=== PATIENT | female | born 1990 | race Caucasian/White ===

== ENCOUNTER 2020-10-07 17:07 | Inpatient (IN) | payer OTHER, SELFPAY ==
[2020-10-07] VITALS (60 sets, daily range): BP systolic 82–152; BP diastolic 51–91; PULSE 75–160; RESP 18; TEMP 36.2–36.7; O2SAT 89–100; BMI 32.0
--- NOTE | 2020-10-07 17:07 | LDADM ---
This patient, Alicia Rivera, was admitted to Labor/Delivery/Recovery 120 on 10/07/20 at 17:07. Plans for labor, pain management and were discussed with patient. Patient/family oriented to hospital policies and general routines including ID bracelet, bed and alarms, visiting hours, pain management, procedures, bathroom and other care routines, personal items, smoking policy, room service/diet and guest tray routines, security routines, and visiting hours. Patient/Family are encouraged to report perceived risks to care and to ask questions if they do not understand what they are told or what they should do. See OBIX for further documentation.
[2020-10-07 17:38] LABS: Basophils Percent Auto 0.3 % (0.2-1.2); Eosinophils Absolute Auto 0.1 K/mm3 (0-0.3); Eosinophils Percent Auto 0.3 % (0-4.4); Hematocrit 35.7 % (37.0-47.0); Hemoglobin 11.4 g/dL (12.0-15.0); Immature Granulocyte Absolute 0.15 K/mm3 (0.00-0.031); Lymphocytes Absolute Auto 1.28 K/mm3 (0.9-3.2); Lymphocytes Percent Auto 8.5 % (18.3-44.2); Mean Corpuscular HGB Conc 31.9 g/dl (32-36); Mean Corpuscular Hemoglobin 26.5 pg (26-34); Mean Corpuscular Volume 82.8 fl (80-100); Mean Platelet Volume 9.7 fl (7.4-10.4); Monocytes Absolute Auto 0.9 K/mm3 (0.1-0.6); Monocytes Percent Auto 5.7 % (2.6-8.5); Neutrophils Absolute Auto 12.6 K/mm3 (1.3-6.7); Neutrophils Percent Auto 84.2 % (45.5-73.1); Platelet Count Result 276 k/mm3 (150-375); Red Blood Count 4.31 M/mm3 (4.2-5.4); Red Cell Distribution Width 15.5 % (11.5-14.5)
--- NOTE | 2020-10-07 18:20 | PC.NURSE ---
1707-Pt arrived on unit stating she is leaking fluid and her butt is burning . Pt is immediately taken to room 120, helped undress place gown and belly band on. Pt leaking gross amount of clear amniotic fluid, stating she feels like she needs to push. 1711-Holden RN called to inform pt came in with obvious ROM and is a repeat section. Orders received to prep pt for c/s 1713-SVE 5-6cm with hand presentation, helped position pt for comfort 1716-FHR in the 70's, called for assistance attempting to turn pt to her side and lower bed 1719-Pt in hands and knee's fhr up to 100, increasing to a range of 110-130 with good variability. 1718-'s cell phone, office and pager called by Mary community liaison officer 1720- called on his cell phone again by Mary informed fhr was in the 70's, presence requested. Attempts made to place IV by RN's 1721- at bedside talking with pt about surgery 1723- IV placed in right hand 1724- at bedside, report given. Orders received to continue prep pt for OR 1727-SVE performed by [id number] Pt repositioned, consents signed, labs drawn and sent, IVF's started.FHT's stable at this time in the 130's with good variability noted 1736-Pt transported to OR per stretcher [id number]'s in the OR 105-140's with accelerations up to 165 after spinal placement 1745-Walker placed, cord noted in the vagina. Manual cord decompression performed by Holden PATE. called per cell phone s
--- NOTE | 2020-10-07 18:46 | P.PNAN_ITS ---
Anes - Initial Pre Proc Eval Procedure: Operation Date: 10/10/20 12:00 Proposed Procedures p Repeat Section - Rolo Everett MD Date/Time: 10/07/20 18:46 Surgeon: Rolo Everett MD Pre Op Diagnosis: Patient Data Age: 30 Gender: F Height: Weight: Last Vital Signs Pulse 91 10/07/20 18:46 BP 99/56 L 10/07/20 18:46 Pulse Ox 100 10/07/20 18:46 Allergies Allergy/AdvReac Type Severity Reaction Status Date / Time Sulfa (Sulfonamide Allergy Mild RASH Verified 07/19/18 14:48 Antibiotics) Laboratory Tests 10/07/20 10/07/20 10/07/20 17:31 17:31 17:31 WBC 15.0 K/mm3 H K/mm3 (4.5-10.0) RBC 4.31 M/mm3 M/mm3 (4.2-5.4) Hgb 11.4 g/dL L g/dL (12.0-15.0) Hct 35.7 % L % (37.0-47.0) MCV 82.8 fl fl (80-100) MCH 26.5 pg pg (26-34) MCHC 31.9 g/dl L g/dl (32-36) RDW 15.5 % H % (11.5-14.5) Plt Count 276 k/mm3 k/mm3 (150-375) MPV 9.7 fl fl (7.4-10.4) Immature Gran % (Auto) 1.0 % H % (0-0.5) Neut % (Auto) 84.2 % H % (45.5-73.1) Lymph % (Auto) 8.5 % L % (18.3-44.2) [place] % (Auto) 5.7 % % (2.6-8.5) Eos % (Auto) 0.3 % % (0-4.4) Baso % (Auto) 0.3 % % (0.2-1.2) Lymph # (Auto) 1.28 K/mm3 K/mm3 (0.9-3.2) [place] # (Auto) 0.9 K/mm3 H K/mm3 (0.1-0.6) Eos # (Auto) 0.1 K/mm3 K/mm3 (0-0.3) Baso # (Auto) 0.0 K/mm3 K/mm3 (0.0-0.1) Abs Immat Gran (auto) 0.15 K/mm3 H K/mm3 (0.00-0.031) Absolute Neuts (auto) 12.6 K/mm3 H K/mm3 (1.3-6.7) Absolute Nucleated RBC 0.0 K/mm3 K/mm3 (0.0-0.012) Nucleated RBC % 0.0 % % (0.0-0.2) RPR Pending Blood Type Pending Antibody Screen Pending Patient hx anesthesia problems: none Family hx anesthesia problems: none Anes - Eval Final PreProcedure Day of Procedure 10/07/20 18:46 Patient weight: obese Heart: regular rate and rhythm Lungs: clear to auscultation and normal air movement Airway: Mallampati scale class II Neurological: alert and oriented Last oral intake: >/= 8 hours ASA classification: II Emergent: yes Anesthetic plan: proceed Anesthesia type and monitoring: regional spinal and standard monitoring Other findings: Pre op assessment performed at bedside on way to OR. Procedure emergent. Informed Consent: The patient's anesthetic plan and its attendant risks and benefits were discussed with the patient/family/POA. Questions were solicited and answers provided to the satisfaction of the patient/family/POA.
--- NOTE | 2020-10-07 19:04 | PM.IMHP ---
H&P: HPI History of Present Illness Date/Time: 10/07/20 19:04 Chief Complaint: meg tomas Narrative: 30 y/o at 39 weeks gestation with a prior . She has had persistent transverse lie and was scheduled for repeat in a few days. Today she had a gush of clear fluid at 1630 with subsequent contractions. She presented to labor and delivery at 1707. On exam parts were felt in the vagina and I was called immediately. Initial FHR deceleration corrected with hands / knees position. At the time of my exam, FHR had recovered and I could feel a hand / arm in the vagina. An IV was quickly started and she was taken to the OR emergently. Because the FHR was stable, we opted to try regional anesthesia. She did was not comfortable on her side, so sat up for spinal placement. Spinal was placed and she was laid back into dorsal supine position. The nurse the labia to place the Walker catheter, and cord was noted to be prolapsing into the vagina. She received a dose of cefazolin and emergent followed. See delivery note for details. Review of Systems Review of Systems: All systems reviewed & are unremarkable except as noted in HPI and below PMFSH Surgical History Surgical History History of delivery Meds Home Medications and Allergies Allergies Allergy/AdvReac Type Severity Reaction Status Date / Time Sulfa (Sulfonamide Allergy Mild RASH Verified 07/19/18 14:48 Antibiotics) Vital Signs Vital Signs - 24 hr 10/07/20 17:19 10/07/20 17:24 10/07/20 17:29 Pulse Rate Blood Pressure Pulse Oximetry 99 100 100 10/07/20 17:34 10/07/20 18:36 10/07/20 18:37 Pulse Rate 119 H 117 H Blood Pressure 103/61 96/52 L Pulse Oximetry 99 100 10/07/20 18:41 10/07/20 18:42 10/07/20 18:46 Pulse Rate 107 H 91 Blood Pressure 102/52 L 99/56 L Pulse Oximetry 97 99 100 10/07/20 18:48 10/07/20 18:50 10/07/20 18:51 Pulse Rate 116 H Blood Pressure 82/57 L Pulse Oximetry 98 98 99 10/07/20 18:52 10/07/20 18:53 10/07/20 18:56 Pulse Rate 101 H Blood Pressure 95/66 L Pulse Oximetry 89 L 100 10/07/20 18:58 10/07/20 19:01 10/07/20 19:03 Pulse Rate 119 H Blood Pressure 112/63 Pulse Oximetry 100 99 Exam Const: Orientation/consciousness: patient oriented x3 Other: Well-developed, well-nourished female in no acute distress. Neck: Thyroid: thyroid normal Lymphatic: no lymphadenopathy noted (in neck, axilla or inguinal nodes) Resp: Effort & Inspection: normal respiratory effort Auscultation: clear to auscultation bilaterally Cardio: Rate: regular rate Rhythm: regular rhythm Heart sounds: S1 normal heart sound present and S2 normal heart sound present GI: Other: ABD: Soft, nontender. Markedly ptotic, gravid abdomen. NST 150, moderate variability after recovery from a deceleration. TOCO: contractions every 2-3 min. : General: Yes no CVA tenderness Other: hand / arm in vagina at the time of my exam. Cord prolapsing subsequently, as above. Back/Spine/Pelvis: Back: no CVA tenderness Skin: General skin exam: normal color and no rashes or lesions noted Neuro: General: patient oriented x3 Extrem: Other: Extremities: nontender with no edema Psych: Mental Status: mental status grossly normal Affect: normal affect H&P: Results Labs Labs: Short CBC 10/07/20 Range/Units 17:31 WBC 15.0 H (4.5-10.0) K/mm3 Hgb 11.4 L (12.0-15.0) g/dL Hct 35.7 L (37.0-47.0) % Plt Count 276 (150-375) k/mm3 Assessment and Plan Assessment and plan (1) SROM (spontaneous rupture of membranes): Status: Acute (2) History of delivery: Code(s): Z98.891 - History of uterine scar from previous surgery Status: Acute Assessment and Plan: A: IUP at 39 weeks with prior delivery, GBS pos, SROM, hand / cord prolapse, nonreassuri
--- NOTE | 2020-10-07 19:18 | PM.OBPRVD ---
OB - Delivery Note Procedure Delivery date: 10/07/20 Procedure: Procedures Operation Date: 10/07/20 17:45 Actual Procedures Side Surgeon p Section Not Applicable Rolo Everett MD Emergent repeat low transverse delivery Intrapartal events: Cord Prolapse Delivery monitor: external FHT and external uterine Route of delivery: (emergent LTCS) Specimen: Yes (cord blood, placenta) Quantitative Blood Loss (ml): 900 Anesthesia type: Spinal Disposition: PACU Complications: None Narrative: The patient was emergently taken to the operating room where she was prepared and draped in the usual sterile fashion in dorsal supine position with a leftward tilt. She received cefazolin preoperatively. Spinal anesthesia was found to be adequate. A Pfannenstiel skin incision was made along the previous scar line and was carried through to the underlying layer of the fascia. The fascia was incised in the midline and the incision was extended laterally. The rectus muscles were in the midline and the the peritoneum entered. Small intestine then spilled into the operative field, presumably because there was no fetus occupying the lower uterine segment. The intestine was packed away. The bladder blade was placed. The vesicouterine peritoneum was identified, tented up and entered sharply. The incision was extended laterally and the bladder flap was developed. The bladder blade was replaced. The uterus was then incised sharply in a transverse fashion along the upper portion of the lower uterine segment. The incision was extended laterally. The placenta then spontaneously began to deliver through the hysterotomy incision, accompanied by the fetus's right hand and arm. The heels were so lateral on the patient's right that they were difficult to grasp. The head on the maternal left was able to be grasped and internal cephalic version brought the head to the incision. The infant's head was delivered atraumatically to the sterile field, followed by the body. The nose and mouth were bulb suctioned. The cord was clamped and cut. The was handed off the field. A segment of cord was ligated for gases. The placenta then delivered fully spontaneously, and further cord blood was unable to be collected. The placenta was passed off the field. The uterus was exteriorized and cleared of all clots and debris. The uterine incision was reapproximated using 0 Monocryl in a running, locked fashion. A second, imbricating layer of the same suture was placed. Excellent hemostasis resulted as did excellent reapproximation of the normal anatomy. The uterus, tubes and ovaries were all inspected and were normal in appearance. The uterus was returned the abdomen. The pelvis was irrigated copiously with warmed normal saline. Rigorous hemostasis was assured. The fascial layer was reapproximated using 0 Vicryl in a running fashion. The skin was closed with a running, subcuticular stitch of 4 0 Vicryl. Dermaflex was applied externally. Sponge, lap, needle and instrument counts were correct. The patient was taken to the recovery room in stable condition. The infant went to the nursery in stable condition. I was present and scrubbed the entire procedure. [place] Baby Date of : 10/07/20 Time of : 17:55 Weeks of gestation at delivery: 39 Infant gender: Female Weight (pounds): 8 Weight (ounces): 15 presentation: transverse Placenta delivery description: Manual Removal cord vessel description: 3 Vessels score one minute: 8 score five minutes: 9
[2020-10-07] MEDS: OXYTOCIN 30 UNITS/NS 500 ML 30 UNITS/500 ML BAG 125 UNITS IV CONT (19:35)
[2020-10-07] MEDS: KETOROLAC 30 MG/ML VIAL (*BKC) IV PUSH (20:50)
--- NOTE | 2020-10-07 21:11 | OBPPTRN ---
Patient transferred to post room #288 via bed with baby in bassinet. Support person present. Oriented to unit, room, information board, rooming in, admission packet and security measures. Patient verbalizes understanding.
[2020-10-07] MEDS: DEXTROSE 5%/0.45% SOD CHL 1,000 ML 125 ML IV CONT (23:51)
[2020-10-08 00:20] VITALS: BP 103/53; PULSE 100; RESP 18; TEMP 36.9; O2SAT 100
[2020-10-08] MEDS: KETOROLAC 30 MG/ML VIAL (*BKC) IV PUSH (03:25)
[2020-10-08 03:56] VITALS: BP 85/46; PULSE 93; RESP 18; TEMP 36.9; O2SAT 99
[2020-10-08] MEDS: HYDROcodone/acetaminophen (*CRX) 10-325 MG TABLET 1 TAB PO ×6 (04:47→23:48)
[2020-10-08 04:51] LABS: Basophils Percent Auto 0.2 % (0.2-1.2); Eosinophils Percent Auto 0.2 % (0-4.4); Hematocrit 25.8 % (37.0-47.0); Hemoglobin 8.3 g/dL (12.0-15.0); Immature Granulocyte Absolute 0.06 K/mm3 (0.00-0.031); Immature Granulocyte Percent A 0.5 % (0-0.5); Lymphocytes Absolute Auto 0.94 K/mm3 (0.9-3.2); Lymphocytes Percent Auto 7.2 % (18.3-44.2); Mean Corpuscular HGB Conc 32.2 g/dl (32-36); Mean Corpuscular Hemoglobin 26.6 pg (26-34); Mean Corpuscular Volume 82.7 fl (80-100); Mean Platelet Volume 9.9 fl (7.4-10.4); Monocytes Absolute Auto 0.8 K/mm3 (0.1-0.6); Monocytes Percent Auto 5.8 % (2.6-8.5); Neutrophils Absolute Auto 11.3 K/mm3 (1.3-6.7); Neutrophils Percent Auto 86.1 % (45.5-73.1); Platelet Count Result 181 k/mm3 (150-375); Red Blood Count 3.12 M/mm3 (4.2-5.4); Red Cell Distribution Width 15.6 % (11.5-14.5); White Blood Count 13.1 K/mm3 (4.5-10.0)
[2020-10-08 06:34] LABS: Rapid Plasma Reagin Non-Reactive (NonReactive)
[2020-10-08 08:00] VITALS: BP 90/49; PULSE 102; RESP 16; TEMP 36; O2SAT 100
--- NOTE | 2020-10-08 08:05 | PC.NURSE ---
Consulted with patient, mother reports she has put infant to breast a few times since . She did not use the nipple shield for the first feeding and had some discomfort. Mother is not attempting with shield and is reporting tenderness. Infant is latch shallow with shield. Instructions given on application and cleaning of shield. Discussed nipple shield precautions and possible complications. Patient able to return demonstration on proper application of shield. Discussed the need to initiate pumping if continues to nurse with the shield. Patient verbalizes understanding. Reviewed infant feeding cues, frequencies, duration of feedings, feeding elimination flow sheet, and signs of adequate intake. Demonstrated stimulation techniques to wake infant for feeding. Assisted with to breast with shield in place. Reviewed positioning/alignment in football, holding breast in C hold and guided asymmetrical latch on. Infant was able to latch correctly. Demonstrated how to adjust latch more deeply while feeding. nursed eagerly, with steady draws and occasional swallowing noted. Reviewed signs of a correct latch, effective nursing and suck swallow ratio. was able] to maintain latch without discomfort to mother. Nipple care reviewed. Suggested to stimulate infant while feeding to keep awake and nursing for increased stimulation and increase intake. Instructed mother to call out for RN assistance if she is unable to latch for feeding or she has discomfort with nursing. Instructed feeding should be initiated three hours from start of last feeding or if feeding cues are noted before. Mother voiced understanding of information shared.
--- NOTE | 2020-10-08 08:14 | WPDANLDPN2 ---
Anes-Prog Note L&D Date/Time: 10/08/20 08:14 Comfortable throughout: section Neuraxial method: spinal Epidural/Spinal procedure site: clean & non-tender Neuro status: Neuro function grossly intact. Cardiovascular status: normal Respiratory status: normal Airway patency: baseline Mental status: baseline Post-Op hydration status: normal Vital Signs: Last Vital Signs Temp 36.9 C 10/08/20 03:56 Pulse 93 10/08/20 03:56 Resp 18 10/08/20 03:56 BP 85/46 L 10/08/20 03:56 Pulse Ox 99 10/08/20 03:56 Pain score (VAS): 3 I/O: Intake & Output 10/07/20 10/08/20 10/08/20 23:59 07:59 15:59 Intake Total 1720 Output Total 1115 1150 Balance -1115 570 Post-procedural complaints: none Patient feedback: Patient satisfied with anesthetic care.
[2020-10-08] MEDS: POLYSACCHARIDE IRON COMPLEX 150 MG CAPSULE PO ×2 (08:15→16:27)
[2020-10-08] MEDS: MULTIVIT/MIN/PREN/FOL AC/IRON TABLET 1 TAB PO (08:15)
--- NOTE | 2020-10-08 08:15 | WPDANLDNPN2 ---
Anes-Prog Note L&D-Neuraxial Date/Time: 10/08/20 08:15 Neuraxial medications: intrathecal PF morphine Opiod-related complaints: none Patient feedback: Patient satisfied with post-operative pain management.
[2020-10-08] MEDS: DOCUSATE SODIUM 100 MG CAPSULE PO ×2 (08:16→16:27)
--- NOTE | 2020-10-08 08:40 | P.PNOB_ITS ---
OB - PN: Subj Subjective Date/time seen: 10/08/20 08:40 Narrative: Pain OK. Tolerating diet. OB - PN: Obj Data Labs CBC & Chem 7: 10/08/20 04:12 Labs: Laboratory Results - last 24 hr 10/07/20 10/07/20 10/07/20 17:31 17:31 17:31 WBC 15.0 H RBC 4.31 Hgb 11.4 L Hct 35.7 L MCV 82.8 MCH 26.5 MCHC 31.9 L RDW 15.5 H Plt Count 276 MPV 9.7 Immature Gran % (Auto) 1.0 H Neut % (Auto) 84.2 H Lymph % (Auto) 8.5 L [place] % (Auto) 5.7 Eos % (Auto) 0.3 Baso % (Auto) 0.3 Lymph # (Auto) 1.28 [place] # (Auto) 0.9 H Eos # (Auto) 0.1 Baso # (Auto) 0.0 Abs Immat Gran (auto) 0.15 H Absolute Neuts (auto) 12.6 H Absolute Nucleated RBC 0.0 Nucleated RBC % 0.0 RPR Non-reactive Blood Type B Positive Antibody Screen Negative 10/08/20 04:12 WBC 13.1 H RBC 3.12 L Hgb 8.3 L D Hct 25.8 L MCV 82.7 MCH 26.6 MCHC 32.2 RDW 15.6 H Plt Count 181 MPV 9.9 Immature Gran % (Auto) 0.5 Neut % (Auto) 86.1 H Lymph % (Auto) 7.2 L [place] % (Auto) 5.8 Eos % (Auto) 0.2 Baso % (Auto) 0.2 Lymph # (Auto) 0.94 [place] # (Auto) 0.8 H Eos # (Auto) 0.0 Baso # (Auto) 0.0 Abs Immat Gran (auto) 0.06 H Absolute Neuts (auto) 11.3 H Absolute Nucleated RBC 0.0 Nucleated RBC % 0.0 RPR Blood Type Antibody Screen OB - PN A/P Plan Comments: A: POD#1, doing well. P: Routine care. Exam Narrative: Exam Narrative: AVSS I/O OK ABD soft, nontender, fundus firm. Incision c/d/i. EXT nontender
--- NOTE | 2020-10-08 08:42 | PM.OBDSVD ---
DS: Admitting Diagnosis Admitting Diagnosis Admitting Diagnosis: IUP at 39 weeks SROM Transverse lie Nonreassuring FHR Prior Prolapse of umbilical cord GBS colonization DS: Discharge Diagnosis Discharge Diagnosis (1) Non-reassuring heart rate or rhythm affecting management of fetus: Status: Acute (2) Umbilical cord prolapse: Code(s): O69.0XX0 - Labor and delivery complicated by prolapse of cord, not applicable or unspecified Status: Acute (3) Transverse lie of fetus: Code(s): O32.2XX0 - Maternal care for transverse and oblique lie, not applicable or unspecified Status: Acute (4) GBS (group B Streptococcus carrier), +RV culture, currently : Code(s): O99.820 - Streptococcus B carrier state complicating Status: Acute (5) SROM (spontaneous rupture of membranes): Status: Acute (6) History of delivery: Code(s): Z98.891 - History of uterine scar from previous surgery Status: Acute OB - DS: Summary OB Procedures : None OB Procedures Intrapartum: OB Procedures: : None Peripartum Data Procedures: Procedures Operation Date: 10/07/20 17:45 Actual Procedures Side Surgeon p Section Not Applicable Rolo Everett MD Time Spent with Patient Time attestation: Total time spent providing and/or coordinating discharge services: DS: Data Data Completed and Pending Pending studies at discharge: Pending at discharge 10/07/20 17:56 Surgical [PTH] Routine Labs on day of discharge: Labs from last 24 hours 10/08/20 10/07/20 10/07/20 04:12 17:31 17:31 WBC 13.1 H RBC 3.12 L Hgb 8.3 L D Hct 25.8 L MCV 82.7 MCH 26.6 MCHC 32.2 RDW 15.6 H Plt Count 181 MPV 9.9 Immature Gran % (Auto) 0.5 Neut % (Auto) 86.1 H Lymph % (Auto) 7.2 L [place] % (Auto) 5.8 Eos % (Auto) 0.2 Baso % (Auto) 0.2 Lymph # (Auto) 0.94 [place] # (Auto) 0.8 H Eos # (Auto) 0.0 Baso # (Auto) 0.0 Abs Immat Gran (auto) 0.06 H Absolute Neuts (auto) 11.3 H Absolute Nucleated RBC 0.0 Nucleated RBC % 0.0 RPR Non-reactive Blood Type B Positive Antibody Screen Negative 10/07/20 17:31 WBC 15.0 H RBC 4.31 Hgb 11.4 L Hct 35.7 L MCV 82.8 MCH 26.5 MCHC 31.9 L RDW 15.5 H Plt Count 276 MPV 9.7 Immature Gran % (Auto) 1.0 H Neut % (Auto) 84.2 H Lymph % (Auto) 8.5 L [place] % (Auto) 5.7 Eos % (Auto) 0.3 Baso % (Auto) 0.3 Lymph # (Auto) 1.28 [place] # (Auto) 0.9 H Eos # (Auto) 0.1 Baso # (Auto) 0.0 Abs Immat Gran (auto) 0.15 H Absolute Neuts (auto) 12.6 H Absolute Nucleated RBC 0.0 Nucleated RBC % 0.0 RPR Blood Type Antibody Screen Discharge Plan Discharge Attending physician on discharge: Rolo Everett Discharging Clinician: Rolo Everett Patient Disposition: Home, Self-Care Activity: may shower, may drive after 2 weeks and pelvic rest Diet: regular Wound Care Instructions: incision open to air Discharge Instructions: Call or return if temperature above 100.4? F, increased abdominal pain, increased vaginal bleeding or any new problems. Stand Alone Forms: General Discharge Information Follow-up/Referrals: Rolo Everett MD [Physician] - 4 Weeks Discharge Medications: New ibuprofen 600 mg tablet 600 mg PO Q6H PRN (Reason: cramps) Qty: 30 RF: 0 hydrocodone-acetaminophen 5-325 mg tablet 1 - 2 tablet PO Q6H PRN (Reason: pain) Qty: 30 RF: 0 ferrous sulfate 325 mg (65 mg iron) tablet 325 mg PO DAILY Qty: 30 RF: 0 Date of admission: 10/07/20 17:07 Primary Care Provider: PHYSICIAN,SUPERVISOR [employer] Admitting Provider: Rolo Everett Attending physician on admission: Rolo Everett Condition: Stable
[2020-10-08] MEDS: IBUPROFEN 600 MG TABLET PO ×3 (09:24→23:48)
--- NOTE | 2020-10-08 09:55 | PC.NURSE ---
Mother called out for assist with latching. Demonstrated stimulation techniques to wake for feeding. Assisted with infant to breast with shield in place. Reviewed positioning/alignment in football, holding breast in C hold and guided asymmetrical latch on. Assisted mother with pillows and correct support for alignment. was able to latch correctly. Demonstrated how to adjust latch more deeply while feeding. Infant nursed eagerly, with steady draws and occasional swallowing noted. Reviewed signs of a correct latch, effective nursing and suck swallow ratio. Infant was able] to maintain latch without discomfort to mother. Nipple care reviewed. Suggested to stimulate infant while feeding to keep infant awake and nursing for increased stimulation and increase intake. Instructed mother to call out for RN assistance if she is unable to latch infant for feeding or she has discomfort with nursing. Instructed feeding should be initiated three hours from start of last feeding or if feeding cues are noted before. Mother voiced understanding of information shared.
[2020-10-08 11:45] VITALS: BP 88/54; PULSE 96; RESP 18; TEMP 36.6; O2SAT 100
--- NOTE | 2020-10-08 13:15 | PC.NURSE ---
Mother called out for assist with feeding. Mother is up in beside chair. Suggested to attempt without shield. Assisted with infant to breast. Reviewed positioning/alignment in cross cradle, holding breast in U hold and asymmetrical latch on. was able to latch correctly within a few attempts. Infant nursed eagerly, with steady draws and frequent swallowing noted. Reviewed signs of a correct latch, effective nursing and suck swallow ratio. Infant was able to maintain latch without discomfort to mother. Nipple care reviewed. Demonstrated how to adjust latch more deeply while was feeding. Advised to stimulate to keep awake and nursing. Instructed mother to call out for RN assistance if she is unable to latch infant for feeding or she has discomfort with nursing. Instructed feeding should be initiated three hours from start of last feeding or if feeding cues are noted before. Mother voiced understanding of information shared.
[2020-10-08 16:00] VITALS: BP 113/67; PULSE 110; RESP 18; TEMP 36.8; O2SAT 100
[2020-10-08] MEDS: SIMETHICONE 80 MG TAB.CHEW PO ×2 (16:28→23:47)
[2020-10-08 18:57] VITALS: BP 85/51; PULSE 114; RESP 16; TEMP 36.8
[2020-10-09] MEDS: SIMETHICONE 80 MG TAB.CHEW PO ×4 (03:49→22:36)
[2020-10-09] MEDS: HYDROcodone/acetaminophen (*CRX) 10-325 MG TABLET 1 TAB PO ×3 (03:49→18:52)
[2020-10-09] MEDS: DOCUSATE SODIUM 100 MG CAPSULE PO ×2 (08:06→16:43)
[2020-10-09] MEDS: MULTIVIT/MIN/PREN/FOL AC/IRON TABLET 1 TAB PO (08:06)
[2020-10-09] MEDS: POLYSACCHARIDE IRON COMPLEX 150 MG CAPSULE PO ×2 (08:07→16:42)
[2020-10-09] MEDS: IBUPROFEN 600 MG TABLET PO ×3 (08:08→22:36)
[2020-10-09] MEDS: HYDROcodone/acetaminophen (*CRX) 5-325 MG TABLET 1 TAB PO ×3 (08:08→22:36)
[2020-10-09 08:10] VITALS: BP 103/54; PULSE 99; RESP 18; TEMP 37.2; O2SAT 100
--- NOTE | 2020-10-09 08:16 | PM.OBPNVD ---
OB - PN: Subj Subjective Date/time seen: 10/09/20 08:16 Narrative: Pain OK. Tolerating diet. OB - PN: Obj Data Labs CBC & Chem 7: 10/08/20 04:12 OB - PN A/P Plan Comments: A: POD#2, doing well. P: Routine care. Exam Narrative: Exam Narrative: AVSS I/O OK ABD soft, nontender, fundus firm. Incision c/d/i. EXT nontender
--- NOTE | 2020-10-09 08:30 | PC.NURSE ---
Consult with pt., mother reports she is tired and in paid from C/S. has used shield at times during the night and have been supplemented. Mother is concerned is not getting enough with . Mother states she is very concerned will prefer bottle over . Discussed shield use with infant accustom to an artificial nipple, suggested paced feeding with supplementation. Suggested pumping should be initiated today if continue with shield use. Mother states she will call out later today for pumping. Mother reports she is comfortable latching independently. Requested mother call out next feeding.
[2020-10-09 08:40] VITALS: PULSE 99; RESP 18; O2SAT 100
[2020-10-09 19:20] VITALS: RESP 20; O2SAT 99
[2020-10-09 19:30] VITALS: BP 101/54; PULSE 98; RESP 20; TEMP 36.8; O2SAT 99
[2020-10-10] MEDS: SIMETHICONE 80 MG TAB.CHEW PO (02:07)
[2020-10-10] MEDS: HYDROcodone/acetaminophen (*CRX) 10-325 MG TABLET 1 TAB PO (02:07)
[2020-10-10] MEDS: IBUPROFEN 600 MG TABLET PO (05:21)
[2020-10-10] MEDS: HYDROcodone/acetaminophen (*CRX) 5-325 MG TABLET 1 TAB PO ×2 (05:26→08:32)
[2020-10-10 08:05] VITALS: BP 93/55; PULSE 98; RESP 18; TEMP 37.1; O2SAT 100
[2020-10-10] MEDS: POLYSACCHARIDE IRON COMPLEX 150 MG CAPSULE PO (08:32)
[2020-10-10] MEDS: MULTIVIT/MIN/PREN/FOL AC/IRON TABLET 1 TAB PO (08:32)
[2020-10-10] MEDS: DOCUSATE SODIUM 100 MG CAPSULE PO (08:32)
--- NOTE | 2020-10-10 08:45 | PC.NURSE ---
Consulted with patient, mother reports infant has been latching without nipple shield. Mother continues to pump and will offer EBM/formula after some feedings. Mother's milk is transitioning in and pumping 10 mls per session. Mother has a pump for home use. Mother is able to independently latch with appropriate positioning/alignment. She denies any nipple discomfort, is feeding as required and waking infant to feed if needed. Infant has had several effective feedings in the past 24 hours, and is currently meeting outcomes for weight, output, jaundice and feeding frequencies. Mother states she feels confident to continue effective with supplementation as mother feels needs at home. Reviewed transition to breast milk, signs of adequate intake, and engorgement/relief. Instructed to call ICP if intake/output less than required. Reviewed regular medications mother is taking. Information provided per [place]. Reviewed community resources on the [facility] website and in the Mom/Baby guide. Information on outpatient services provided. Mother has no further questions at this time.
--- NOTE | 2020-10-10 08:54 | PM.OBPNVD ---
OB - PN: Subj Subjective Date/time seen: 10/10/20 08:54 Narrative: Pain OK. Tolerating diet. Would like to go home. OB - PN: Obj Data Labs CBC & Chem 7: 10/08/20 04:12 OB - PN A/P Plan Comments: A: POD#3, doing well. P: Home to f/u 4 weeks. Exam Narrative: Exam Narrative: AVSS ABD soft, nontender, fundus firm. Incision c/d/i. EXT nontender
[2020-10-11 09:55] VITALS: BP 109/68; PULSE 95; RESP 16; TEMP 36.6; O2SAT 98
== END 2020-10-10 10:55 | disposition home or self-care (01) | DRG 788 ==
LOC: ANHLDR 21:31 → ANHOB2 22:10
PROVIDERS: Admitting Provider Obstetrics & Gynecology; Visit Provider Obstetrics & Gynecology
DX: O34.211 Maternal care for low transverse scar from previous cesarean delivery (principal); Z37.0 Single live birth; Z3A.39 39 weeks gestation of pregnancy; O69.0XX0 Labor and delivery complicated by prolapse of cord, not applicable or unspecified; O99.824 Streptococcus B carrier state complicating childbirth; O99.214 Obesity complicating childbirth; E66.9 Obesity, unspecified; O32.2XX0 Maternal care for transverse and oblique lie, not applicable or unspecified
CPT/HCPCS: 36415; 85025; 86592; 86850; 86900; 86901; 88307; A9270; J1885; J2274; J2405; J2590; J2704

== ENCOUNTER 2022-07-30 10:28 | Outpatient (CLI) | payer OTHER, SELFPAY ==
--- NOTE | ~2022-07-30 | US_ITS ---
EXAMINATION: US OB follow up DATE: 07/30/2022 10:59 INDICATION: Routine care during third trimester of . TECHNIQUE: Real-time ultrasound of the pelvis was performed. The interpreting radiologist was not pre sent for the study. COMPARISON: None. FINDINGS: There is a single living fetus in transverse lie with vertex to maternal left presentation. The plac enta is left anterior. The cervix is poorly visualized with the caudal margin of the placenta approxi mately 6.2 cm from the region of the cervix. No evident subchorionic hematoma.. heart rate is 1 56 beats per minute (bpm). The amniotic fluid index is 15.0 cm, which is normal (5th%-95%: 7.5-24.4 cm at T7 weeks estimated gestational age). The following biometric data were obtained: BPD: 8.9 cm -> 36 weeks 0 days Head circumference: 34.0 cm -> 39 weeks 1 days Abdominal circumference: 35.7 cm -> 39 weeks 4 days Femur length: 7.5 cm -> 38 weeks 2 days These measurements are concordant. Head circumference to abdominal circumference ratio: 0.95 (normal range 0.89-1.06). Estimated weight: 3600 g (+/-) 540 g or 7 lbs. 15 oz. (+/-) 1 lbs. 3 oz. IMPRESSION: 1. Single living fetus in transverse lie with heart rate of 156 bpm. 2. Gestational age by ultrasound of 38 weeks 2 day(s) +/- 2 week(s) 5 day(s) with ultrasound estimate d date of delivery (ARMANDO) of 08/11/2022. Estimated weight is 87th percentile by Hadlock criteria w hen 08/16/2022 is used as the ARMANDO. Please correlate with clinical information or earlier ultrasounds fo r most accurate ARMANDO. 3. Normal amniotic fluid index of 15.0 cm. Reviewed, dictated and finalized at location L. RAIL CHARGER OPERATOR IMPRESSION: 1. Single living fetus in transverse lie with heart rate of 156 bpm. 2. Gestational age by ultrasound of 38 weeks 2 day(s) +/- 2 week(s) 5 day(s) wi th ultrasound estimated date of delivery (ARMANDO) of 08/11/2022. Estimated cordelia ght is 87th percentile by Hadlock criteria when 08/16/2022 is used as the ARMANDO. Pl ease correlate with clinical information or earlier ultrasounds for most accura te ARMANDO. 3. Normal amniotic fluid index of 15.0 cm.
== END 2022-07-30 10:29 ==
PROVIDERS: Visit Provider Obstetrics & Gynecology
DX: O32.9XX1 Maternal care for malpresentation of fetus, unspecified, fetus 1 (principal); Z3A.38 38 weeks gestation of pregnancy
CPT/HCPCS: 76816

== ENCOUNTER 2022-08-11 10:04 | Inpatient (IN) | payer OTHER, SELFPAY ==
[2022-08-11] VITALS (48 sets, daily range): BP systolic 79–115; BP diastolic 43–76; PULSE 62–195; RESP 16–20; TEMP 36.3–37.1; O2SAT 73–100; BMI 30.7
--- NOTE | 2022-08-11 10:22 | LDADM ---
This patient, Alicia Rivera, was admitted to Labor/Delivery/Recovery 120 on 08/11/22 at 10:04. Plans for labor, pain management and were discussed with patient. Patient/family oriented to hospital policies and general routines including ID bracelet, bed and alarms, visiting hours, pain management, procedures, bathroom and other care routines, personal items, smoking policy, room service/diet and guest tray routines, security routines, and visiting hours. Patient/Family are encouraged to report perceived risks to care and to ask questions if they do not understand what they are told or what they should do. See OBIX for further documentation.
--- NOTE | 2022-08-11 10:41 | P.PNAN_ITS ---
Anes - Initial Pre Proc Eval Procedure: Operation Date: 08/11/22 12:00 Proposed Procedures p Repeat Section - Rolo Everett MD Date/Time: 08/11/22 10:41 Surgeon: Rolo Everett MD Pre Op Diagnosis: C/S Patient Data Age: 32 Gender: F Height: Weight: Last Vital Signs Pulse 104 H 08/11/22 10:35 BP 115/64 08/11/22 10:35 Allergies Allergy/AdvReac Type Severity Reaction Status Date / Time Sulfa (Sulfonamide Allergy Mild RASH Verified 07/19/18 14:48 Antibiotics) Home Medications Medication Instructions Recorded Confirmed Type Classic 1 tablet PO DAILY 08/11/22 08/11/22 History Patient hx anesthesia problems: none Family hx anesthesia problems: none Results Review: All pre-operative results and documents have been reviewed as part of the pre- operative evaluation. [facility] Surgical History Surgical History History of delivery Family History Family History (Updated 08/11/22 @ 11:08 by Tata Garcia RN) Father Hypertension Social History Social History Smoking status: Never smoker Substance use: never Lack of Transportation: No Lack of Food: Never True Current Housing: I Have Housing Concerned About Future Housing: No Difficulty Paying Gas/Electric Bills: No Difficulty Paying for Meds: No Currently Unemployed: No Education: Bachelor's Degree Difficulty w/ Childcare or Family Care: No Spiritual care concerns: No Anes - Eval Final PreProcedure Day of Procedure 08/11/22 10:41 Patient weight: obese Heart: regular rate and rhythm Lungs: clear to auscultation and normal air movement Airway: Mallampati scale class II Neurological: alert and oriented Last oral intake: >/= 8 hours ASA classification: II Emergent: yes Anesthetic plan: proceed Anesthesia type and monitoring: regional spinal and standard monitoring Results Review: All pre-operative results and documents have been reviewed as part of the pre- operative evaluation. Informed Consent: The patient's anesthetic plan and its attendant risks and benefits were discussed with the patient/family/POA. Questions were solicited and answers provided to the satisfaction of the patient/family/POA.
[2022-08-11] MEDS: LACTATED RINGERS 1,000 ML 999 ML IV CONT (10:50)
--- NOTE | 2022-08-11 10:50 | P.HP_ITS ---
H&P: HPI History of Present Illness Date/Time: 08/11/22 10:50 Chief Complaint: Here for c section Narrative: 32 y/o at 39 2/7 weeks with prior x 2. EFW 7#15 oz two weeks ago. Transverse lie. GBS pos. Review of Systems Review of Systems: All systems reviewed & are unremarkable except as noted in HPI and below PMFSH Surgical History Surgical History History of delivery Social History Social History Smoking status: Never smoker Spiritual care concerns: No Meds Home Medications and Allergies Home Medications Medication Instructions Recorded Confirmed Type Classic 1 tablet PO DAILY 08/11/22 08/11/22 History Allergies Allergy/AdvReac Type Severity Reaction Status Date / Time Sulfa (Sulfonamide Allergy Mild RASH Verified 07/19/18 14:48 Antibiotics) Vital Signs Vital Signs - 24 hr 08/11/22 10:35 Pulse Rate 104 H Blood Pressure 115/64 Exam Const: Orientation/consciousness: patient oriented x3 Other: Well-developed, well-nourished female in no acute distress. Neck: Thyroid: thyroid normal Lymphatic: no lymphadenopathy noted (in neck, axilla or inguinal nodes) Resp: Effort & Inspection: normal respiratory effort Auscultation: clear to auscultation bilaterally Cardio: Rate: regular rate Rhythm: regular rhythm Heart sounds: S1 normal heart sound present and S2 normal heart sound present GI: Other: ABD: Soft, nontender, gravid. FH 40 cm. Transverse lie. FHR 150 bpm. No guarding or rebound tenderness. No hepatosplenomegaly. : General: Yes no CVA tenderness Other: Cervix closed, thick Back/Spine/Pelvis: Back: no CVA tenderness Skin: General skin exam: normal color and no rashes or lesions noted Neuro: General: patient oriented x3 Extrem: Other: Extremities: nontender with no edema Psych: Mental Status: mental status grossly normal Affect: normal affect Assessment and Plan Assessment and plan (1) History of delivery: Code(s): Z98.891 - History of uterine scar from previous surgery Status: Acute Assessment and Plan: A: IUP at 39 2/7 weeks with prior x 2, transverse lie, and GBS pos. P: Offered repeat . She understands risks of surgery to include risks of anesthesia, risks of pain, infection, bleeding, blood products, thromboembolic phenomena and damage to adjacent structures such as bowel, b ladder, ureters, blood vessels and nerves. She understands all these risks and elects to proceed with surgery. (2) Term : Code(s): Z34.90 - Encounter for supervision of normal , unspecified, unspecified trimester Status: Acute (3) GBS (group B Streptococcus carrier), +RV culture, currently : Code(s): O99.820 - Streptococcus B carrier state complicating Status: Acute (4) Malpresentation of fetus: Code(s): O32.9XX0 - Maternal care for malpresentation of fetus, unspecified, not applicable or unspecified Status: Acute
[2022-08-11 11:06] LABS: Basophils Percent Auto 0.3 % (0.2-1.2); Eosinophils Absolute Auto 0.1 K/mm3 (0-0.3); Eosinophils Percent Auto 1.1 % (0-4.4); Hematocrit 30.8 % (37.0-47.0); Hemoglobin 9.7 g/dL (12.0-15.0); Immature Granulocyte Absolute 0.08 K/mm3 (0.00-0.031); Immature Granulocyte Percent A 0.9 % (0-0.5); Lymphocytes Absolute Auto 1.14 K/mm3 (0.9-3.2); Lymphocytes Percent Auto 12.2 % (18.3-44.2); Mean Corpuscular HGB Conc 31.5 g/dl (32-36); Mean Corpuscular Hemoglobin 26.6 pg (26-34); Mean Corpuscular Volume 84.6 fl (80-100); Mean Platelet Volume 10.2 fl (7.4-10.4); Monocytes Absolute Auto 0.6 K/mm3 (0.1-0.6); Monocytes Percent Auto 5.9 % (2.6-8.5); Neutrophils Absolute Auto 7.4 K/mm3 (1.3-6.7); Neutrophils Percent Auto 79.6 % (45.5-73.1); Platelet Count Result 200 k/mm3 (150-375); Red Blood Count 3.64 M/mm3 (4.2-5.4); Red Cell Distribution Width 14.6 % (11.5-14.5); White Blood Count 9.3 K/mm3 (4.5-10.0)
--- NOTE | 2022-08-11 12:07 | WPDHPUPDATE1 ---
History and Physical Update Update Date/Time: 08/11/22 12:07 History and Physical has been reviewed, including an updated exam of the patient. There are NO changes in the patient's condition. Risks, benefits, and alternatives have been discussed and questions answered. Patient agrees to proceed with procedure.
[2022-08-11] MEDS: ceFAZolin 2 GM/D5W 50 ML 2 GM/50 ML BAG IVPB (12:12)
--- NOTE | 2022-08-11 13:22 | PM.OBPRVD ---
OB - Delivery Note Procedure Delivery date: 08/11/22 Procedure: Procedures Operation Date: 08/11/22 12:00 <No data on this case meets the specified criteria> Repeat low transverse delivery Events: Positive Group B Strep (GBS) Delivery monitor: External FHT and External Uterine Route of delivery: (Repeat LTCS) Specimen: Yes (cord blood) Quantitative Blood Loss (ml): 640 Anesthesia type: Spinal Disposition: PACU Complications: None Narrative: The patient was taken to the operating room where she was prepared and draped in the usual sterile fashion in dorsal supine position with a leftward tilt. She received cefazolin preoperatively. Spinal anesthesia was found to be adequate. A Pfannenstiel skin incision was made along the previous scar line and was carried through to the underlying layer of the fascia. The fascia was incised in the midline and the incision was extended laterally. The fascia was dissected free of the underlying rectus muscles. The rectus muscles were in the midline. The peritoneum was identified, tented up and entered sharply. The peritoneal incision was extended superiorly and inferiorly with good visualization of the bladder. The bladder blade was placed. The uterus was rotated toward the patient's left. The vesicouterine peritoneum was identified, tented up and entered sharply. The incision was extended laterally and the bladder flap was developed. The bladder blade was replaced. The uterus was then incised sharply in a transverse fashion along the lower uterine segment. The incision was extended laterally. The infant's head was brought to the incision and was delivered atraumatically to the sterile field, followed by the body. The nose and mouth were bulb suctioned. After a delay, the cord was clamped and cut. The infant was handed off the field. Cord blood was collected. The placenta was removed manually and was passed off the field. The uterus was exteriorized and cleared of all clots and debris. The uterine incision was reapproximated using 0 Monocryl in a running, locked fashion. A second, imbricating layer of the same suture was run. Excellent hemostasis resulted as did excellent reapproximation of the normal anatomy. The uterus was returned the abdomen. The pelvis was irrigated copiously with warmed normal saline. Hemaderm was applied to the bladder flap. Rigorous hemostasis was assured. The fascial layer was reapproximated using 0 Vicryl in a running fashion. The skin was closed with a running, subcuticular stitch of 4 0 Vicryl. Dermaflex was applied externally. Sponge, lap, needle and instrument counts were correct. The patient was taken to the recovery room in stable condition. The went to the nursery in stable condition. I was present and scrubbed the entire procedure. [place] Baby Date of : 08/11/22 Time of : 12:44 Weeks of gestation at delivery: 39 Infant gender: Female Weight (pounds): 8 Weight (ounces): 12 presentation: transverse Placenta delivery description: Manual Removal and Normal Configuration Cord Vessel Description: 3 Vessels and Delayed Cord Clamping score one minute: 8 score five minutes: 9
--- NOTE | 2022-08-11 13:27 | PM.OBDSVD ---
DS: Admitting Diagnosis Discharge Date 08/14/21 Admitting Diagnosis IUP at 39 2/7 weeks Prior x 2 Transverse lie GBS pos DS: Discharge Diagnosis Discharge Diagnosis (1) delivery delivered: Code(s): O82 - Encounter for delivery without indication Status: Acute (2) GBS (group B Streptococcus carrier), +RV culture, currently : Code(s): O99.820 - Streptococcus B carrier state complicating Status: Acute OB - DS: Summary OB Procedures : None OB Procedures Intrapartum: OB Procedures: : None Peripartum Data Procedures: Procedures Operation Date: 08/11/22 12:00 <No data on this case meets the specified criteria> Time Spent with Patient Time attestation: Total time spent providing and/or coordinating discharge services: DS: Data Data Completed and Pending Labs on day of discharge: Labs from last 24 hours 08/11/22 08/11/22 08/11/22 10:48 10:48 10:48 WBC 9.3 RBC 3.64 L Hgb 9.7 L Hct 30.8 L MCV 84.6 MCH 26.6 MCHC 31.5 L RDW 14.6 H Plt Count 200 MPV 10.2 Immature Gran % (Auto) 0.9 H Neut % (Auto) 79.6 H Lymph % (Auto) 12.2 L [place] % (Auto) 5.9 Eos % (Auto) 1.1 Baso % (Auto) 0.3 Lymph # (Auto) 1.14 [place] # (Auto) 0.6 Eos # (Auto) 0.1 Baso # (Auto) 0.0 Abs Immat Gran (auto) 0.08 H Absolute Neuts (auto) 7.4 H Absolute Nucleated RBC 0.0 Nucleated RBC % 0.0 RPR Pending Blood Type B Positive Antibody Screen Negative Discharge Plan Discharge Attending physician on discharge: Rolo Everett Discharging Clinician: Rolo Everett Patient Disposition: Home, Self-Care Activity: may shower, may drive after 2 weeks and pelvic rest Diet: regular Wound Care Instructions: incision open to air Discharge Instructions: Call or return if temperature above 100.4? F, increased abdominal pain, increased vaginal bleeding or any new problems. Stand Alone Forms: General Discharge Information Follow-up/Referrals: Rolo Everett MD [Physician] - 4 Weeks Discharge Medications: New ibuprofen 600 mg tablet 600 mg PO Q6H PRN (Reason: cramps) Qty: 30 0RF ferrous sulfate 325 mg (65 mg iron) tablet 325 mg PO DAILY Qty: 30 0RF hydrocodone-acetaminophen 5-325 mg tablet 1 - 2 tablet PO Q6H PRN (Reason: pain) Qty: 30 0RF Continued Classic 1 tablet PO DAILY Date of admission: 08/11/22 10:04 Primary Care Provider: Nicholas Evans Admitting Provider: Rolo Everett Attending physician on admission: Rolo Everett Condition: Stable
[2022-08-11] MEDS: OXYTOCIN 30 UNITS/NS 500 ML 30 UNITS/500 ML BAG 125 UNITS IV CONT (13:54)
--- NOTE | 2022-08-11 15:17 | SUR.PHASEI ---
Report called to Lyric Ann RN pt going to room 283 for pp care once recovery completed.
--- NOTE | 2022-08-11 15:40 | SUR.PHASEI ---
Pt taken to PP room, belongings, chart, infant and spouse with pt upon transfer. Bedside update to Lyric.
--- NOTE | 2022-08-11 15:47 | PC.NURSE ---
Patient transferred to post room #283 via stretcher. Support person present. Oriented to unit, room, information board, rooming in, admission packet and security measures. Patient verbalizes understanding.
[2022-08-11 16:42] LABS: Rapid Plasma Reagin Non-Reactive (NonReactive)
[2022-08-11] MEDS: DEXTROSE 5%/0.45% SOD CHL 1,000 ML 125 ML IV CONT (18:45)
[2022-08-11] MEDS: KETOROLAC 30 MG/ML VIAL (*BKC) IV PUSH (22:05)
[2022-08-12 00:20] VITALS: BP 82/48; PULSE 65; RESP 16; TEMP 36.7
[2022-08-12 03:20] VITALS: BP 89/53; PULSE 78; RESP 18; TEMP 36.7
[2022-08-12 04:47] LABS: Basophils Percent Auto 0.2 % (0.2-1.2); Eosinophils Absolute Auto 0.1 K/mm3 (0-0.3); Eosinophils Percent Auto 0.7 % (0-4.4); Hematocrit 25.5 % (37.0-47.0); Hemoglobin 8.1 g/dL (12.0-15.0); Immature Granulocyte Absolute 0.09 K/mm3 (0.00-0.031); Immature Granulocyte Percent A 0.7 % (0-0.5); Lymphocytes Absolute Auto 2.02 K/mm3 (0.9-3.2); Lymphocytes Percent Auto 16.3 % (18.3-44.2); Mean Corpuscular HGB Conc 31.8 g/dl (32-36); Mean Corpuscular Hemoglobin 26.7 pg (26-34); Mean Corpuscular Volume 84.2 fl (80-100); Mean Platelet Volume 10.6 fl (7.4-10.4); Monocytes Absolute Auto 0.9 K/mm3 (0.1-0.6); Monocytes Percent Auto 7.3 % (2.6-8.5); Neutrophils Absolute Auto 9.2 K/mm3 (1.3-6.7); Neutrophils Percent Auto 74.8 % (45.5-73.1); Platelet Count Result 199 k/mm3 (150-375); Red Blood Count 3.03 M/mm3 (4.2-5.4); Red Cell Distribution Width 14.6 % (11.5-14.5); White Blood Count 12.4 K/mm3 (4.5-10.0)
[2022-08-12] MEDS: IBUPROFEN 600 MG TABLET PO ×3 (05:48→18:08)
--- NOTE | 2022-08-12 07:30 | PC.NURSE ---
PT introductions made and plan of care discussed per post op c section, mom baby care guide, pain management, and daily activities. PT and spouse both recipients of such instructions per one to one discussion, demonstrations, and mom baby care guide this shift. No barriers to learning identified at this time. PT verbalized understanding of such care.
--- NOTE | 2022-08-12 07:35 | WPDANLDPN2 ---
Anes-Prog Note L&D Date/Time: 08/12/22 07:35 Comfortable throughout: section Neuraxial method: spinal Epidural/Spinal procedure site: clean & non-tender Neuro status: Neuro function grossly intact. Cardiovascular status: normal Respiratory status: normal Airway patency: baseline Mental status: baseline Post-Op hydration status: normal Vital Signs: Last Vital Signs Temp 36.7 C 08/12/22 03:20 Pulse 78 08/12/22 03:20 Resp 18 08/12/22 03:20 BP 89/53 L 08/12/22 03:20 Pulse Ox 98 08/11/22 16:00 O2 Del Method Room Air 08/11/22 15:20 Pain score (VAS): 2/10 I/O: Intake & Output 08/11/22 08/11/22 08/12/22 15:59 23:59 07:59 Intake Total 1050 900 700 Output Total 358 145 1639 Balance 910 50 -1200 Post-procedural complaints: none Patient feedback: Patient satisfied with anesthetic care.
--- NOTE | 2022-08-12 07:35 | WPDANLDNPN2 ---
Anes-Prog Note L&D-Neuraxial Date/Time: 08/12/22 07:35 Neuraxial medications: intrathecal PF morphine Opiod-related complaints: none Patient feedback: Patient satisfied with post-operative pain management.
[2022-08-12 07:50] VITALS: BP 85/48; PULSE 81; RESP 18; TEMP 37.3; O2SAT 100
[2022-08-12] MEDS: HYDROcodone/acetaminophen (*CRX) 5-325 MG TABLET 1 TAB PO ×3 (08:16→18:04)
[2022-08-12] MEDS: MULTIVIT/MIN/PREN/FOL AC/IRON TABLET 1 TAB PO (08:16)
[2022-08-12] MEDS: DOCUSATE SODIUM 100 MG CAPSULE PO ×2 (08:16→18:04)
[2022-08-12] MEDS: SIMETHICONE 80 MG TAB.CHEW PO ×3 (08:16→14:53)
[2022-08-12 08:17] VITALS: PULSE 81; RESP 18; O2SAT 100
[2022-08-12] MEDS: LANOLIN (LANSINOH) 7.5 GM CREAM 1 APPLIC TOPICAL (08:17)
[2022-08-12] MEDS: POLYSACCHARIDE IRON COMPLEX 150 MG CAPSULE PO ×2 (08:17→18:05)
[2022-08-12 11:54] VITALS: BP 98/53; PULSE 99; RESP 16; TEMP 37.3; O2SAT 99
--- NOTE | 2022-08-12 12:01 | PC.NURSE ---
[id number] Mother is demonstrating her ability to independently latch with appropriate positioning/alignment at the right breast. She denies any nipple discomfort, is responsively and discusses the information she received from the ICP of the tight tongue . Infant is currently meeting outcomes for weight, output, jaundice and feeding frequencies of 8-12 times in 24 hours. Mother is receptive to practice the football positioning. Infant is placed in football position at nipple level, nipple to nose, when infant opens wide, then is brought to the breast with chin buried and nose near the breast. Mother denies any discomfort. Mother is encouraged to call for assistance if her infant doesn?t latch or there is discomfort with latching. Mother voiced understanding of information shared and mom and baby guide reviewed for additional resource information. Reported to the primary RN.
--- NOTE | 2022-08-12 15:42 | PC.NURSE ---
1500 Mother verbalizes she is able to independently latch infant with appropriate positioning/alignment. She denies any nipple discomfort and is responsively . Infant is currently meeting outcomes for weight, output, jaundice and feeding frequencies of 8-12 times in 24 hours. Mother declines any additional assistance/education at this time and is appreciative of the football position that enables her to have one hand free comfortably with no pain. Mother is encouraged to call for assistance if her infant doesn?t latch or there is discomfort with latching. Mother voiced understanding of information shared, additional resource information using llli.[email or web address]/ftylbn-pwa-nfhc and mom/baby guide.
--- NOTE | 2022-08-12 17:15 | PM.OBPNVD ---
OB - PN: Subj Subjective Date/time seen: 08/12/22 17:15 Narrative: Pain OK. Tolerating diet. OB - PN: Obj Data Labs 08/12/22 03:27 Labs: Laboratory Results - last 24 hr 08/12/22 03:27 WBC 12.4 H RBC 3.03 L Hgb 8.1 L Hct 25.5 L MCV 84.2 MCH 26.7 MCHC 31.8 L RDW 14.6 H Plt Count 199 MPV 10.6 H Immature Gran % (Auto) 0.7 H Neut % (Auto) 74.8 H Lymph % (Auto) 16.3 L [place] % (Auto) 7.3 Eos % (Auto) 0.7 Baso % (Auto) 0.2 Lymph # (Auto) 2.02 [place] # (Auto) 0.9 H Eos # (Auto) 0.1 Baso # (Auto) 0.0 Abs Immat Gran (auto) 0.09 H Absolute Neuts (auto) 9.2 H Absolute Nucleated RBC 0.0 Nucleated RBC % 0.0 OB - PN A/P Plan Comments: A: POD#1, doing well. P: Routine care. Exam Narrative: AVSS I/O OK ABD soft, nontender, fundus firm. Incision c/d/i. EXT nontender
[2022-08-12 21:30] VITALS: BP 91/58; PULSE 104; RESP 18; TEMP 36.8
[2022-08-13] MEDS: IBUPROFEN 600 MG TABLET PO ×4 (00:06→21:21)
[2022-08-13] MEDS: HYDROcodone/acetaminophen (*CRX) 5-325 MG TABLET 1 TAB PO ×5 (00:07→21:23)
[2022-08-13 07:30] VITALS: PULSE 88; RESP 18; O2SAT 100
[2022-08-13] MEDS: SIMETHICONE 80 MG TAB.CHEW PO ×4 (07:36→17:35)
[2022-08-13] MEDS: POLYSACCHARIDE IRON COMPLEX 150 MG CAPSULE PO ×2 (07:38→17:37)
[2022-08-13] MEDS: DOCUSATE SODIUM 100 MG CAPSULE PO ×2 (07:38→17:37)
[2022-08-13] MEDS: MULTIVIT/MIN/PREN/FOL AC/IRON TABLET 1 TAB PO (08:06)
[2022-08-13 08:15] VITALS: BP 109/50; PULSE 88; RESP 18; TEMP 37.4; O2SAT 100
--- NOTE | 2022-08-13 09:02 | PM.OBPNVD ---
OB - PN: Subj Subjective Date/time seen: 08/13/22 09:02 Narrative: Pain OK. Tolerating diet. OB - PN: Obj Data Labs 08/12/22 03:27 OB - PN A/P Plan Comments: A: POD#2, doing well. P: Routine care. Exam Narrative: AVSS I/O OK ABD soft, nontender, fundus firm. Incision c/d/i. EXT nontender
[2022-08-13] MEDS: HYDROcodone/acetaminophen (*CRX) 10-325 MG TABLET 1 TAB PO (17:35)
[2022-08-13 20:15] VITALS: BP 104/55; PULSE 96; RESP 16; TEMP 37
[2022-08-14] MEDS: IBUPROFEN 600 MG TABLET PO ×2 (04:25→10:54)
[2022-08-14] MEDS: HYDROcodone/acetaminophen (*CRX) 5-325 MG TABLET 1 TAB PO ×2 (04:27→08:06)
[2022-08-14] MEDS: DOCUSATE SODIUM 100 MG CAPSULE PO (08:06)
[2022-08-14] MEDS: MULTIVIT/MIN/PREN/FOL AC/IRON TABLET 1 TAB PO (08:06)
[2022-08-14] MEDS: POLYSACCHARIDE IRON COMPLEX 150 MG CAPSULE PO (08:06)
[2022-08-14 08:40] VITALS: BP 91/53; PULSE 85; RESP 18; TEMP 37.1; O2SAT 100
--- NOTE | 2022-08-14 09:01 | PM.OBPNVD ---
OB - PN: Subj Subjective Date/time seen: 08/14/22 09:01 Narrative: Pain OK. Tolerating diet. Would like to go home. OB - PN: Obj Data Labs 08/12/22 03:27 OB - PN A/P Plan Comments: A: POD#3, doing well. P: Home to f/u 4 weeks. Exam Narrative: AVSS ABD soft, nontender, fundus firm. Incision c/d/i. EXT nontender
--- NOTE | 2022-08-14 09:45 | PC.NURSE ---
Patient viewed the discharge video Mother & Baby Care, The First Two Weeks . Patient was given the opportunity and encouraged to ask questions. Patient verbalized understanding of information shared and has been given the mother/baby guide for home reference.
== END 2022-08-14 11:11 | disposition home or self-care (01) | DRG 788 ==
LOC: ANHLDR 13:29 → ANHOB2 15:50
PROVIDERS: Admitting Provider Obstetrics & Gynecology; Visit Provider Obstetrics & Gynecology
PROC: 10D00Z1 Extraction of Products of Conception, Low, Open Approach (ICD-10-PCS; CPT 59514; principal; 2022-08-11 12:00)
DX: O34.219 Maternal care for unspecified type scar from previous cesarean delivery (principal); O32.2XX0 Maternal care for transverse and oblique lie, not applicable or unspecified; O99.824 Streptococcus B carrier state complicating childbirth; Z3A.39 39 weeks gestation of pregnancy; Z37.0 Single live birth
CPT/HCPCS: 36415; 85025; 86592; 86850; 86900; 86901; A9270; J0131; J0690; J1100; J1885; J2274; J2370; J2405; J2590; J7120

== ENCOUNTER 2024-04-11 16:10 | Observation (INO) | payer OTHER, SELFPAY ==
[2024-04-11] VITALS (10 sets, daily range): BP systolic 93–117; BP diastolic 50–75; PULSE 79–112; RESP 16–20; TEMP 36.8; O2SAT 97–100; BMI 27.3
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
--- NOTE | 2024-04-11 17:45 | OBADM ---
This patient, Alicia Rivera, admitted to the OB room OB Post 115 for observation. Patient/family oriented to hospital policies and general routines including ID bracelet, bed and alarms, visiting hours, pain management, procedures, bathroom and other care routines, personal items, smoking policy, room service/diet, and visiting hours. Patient/Family are encouraged to report perceived risks to care and to ask questions if they do not understand what they are told or what they should do.
--- NOTE | 2024-04-11 19:42 | PC.NURSE ---
Pt discharged home undelivered in stable condition per order from . Discharge instructions given and explained to pt. Pt stated understanding, denies any questions or concerns. Pt ambulated out of department with all belongings, S.O @ pt side.
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
== END 2024-04-11 19:39 | disposition home or self-care (01) ==
LOC: ANHED 17:23 → ANHOBPP 17:33
PROVIDERS: Admitting Provider Obstetrics & Gynecology; Emergency Provider Emergency Medicine; Visit Provider Obstetrics & Gynecology
DX: Z04.1 Encounter for examination and observation following transport accident (principal); O26.893 Other specified pregnancy related conditions, third trimester; Z3A.36 36 weeks gestation of pregnancy
CPT/HCPCS: 76815; 99285; G0378

== ENCOUNTER 2024-05-09 09:53 | Inpatient (IN) | payer OTHER, SELFPAY ==
[2024-05-09] VITALS (44 sets, daily range): BP systolic 79–112; BP diastolic 49–69; PULSE 56–107; RESP 14–20; TEMP 36.6–37.6; O2SAT 97–100; BMI 28.0
[2024-05-09] MEDS: ACETAMINOPHEN 500 MG TABLET 1000 MG PO (10:22)
--- NOTE | 2024-05-09 10:31 | LDADM ---
This patient, Alicia Rivera, was admitted to Labor/Delivery/Recovery 120 on 05/09/24 at 09:53. Plans for labor, pain management and were discussed with patient. Patient/family oriented to hospital policies and general routines including ID bracelet, bed and alarms, visiting hours, pain management, procedures, bathroom and other care routines, personal items, smoking policy, room service/diet and guest tray routines, security routines, and visiting hours. Patient/Family are encouraged to report perceived risks to care and to ask questions if they do not understand what they are told or what they should do. See OBIX for further documentation.
[2024-05-09] MEDS: LACTATED RINGERS 1,000 ML 125 ML IV CONT ×2 (11:05→12:01)
[2024-05-09 11:16] LABS: Basophils Percent Auto 0.2 % (0.2-1.2); Eosinophils Absolute Auto 0.4 K/mm3 (0-0.3); Eosinophils Percent Auto 3.8 % (0-4.4); Hematocrit 34.2 % (37.0-47.0); Hemoglobin 10.7 g/dL (12.0-15.0); Immature Granulocyte Absolute 0.13 K/mm3 (0.00-0.031); Immature Granulocyte Percent A 1.1 % (0-0.5); Lymphocytes Absolute Auto 1.64 K/mm3 (0.9-3.2); Mean Corpuscular HGB Conc 31.3 g/dl (32-36); Mean Corpuscular Hemoglobin 26.2 pg (26-34); Mean Corpuscular Volume 83.8 fl (80-100); Mean Platelet Volume 10.9 fl (7.4-10.4); Monocytes Absolute Auto 0.7 K/mm3 (0.1-0.6); Monocytes Percent Auto 5.8 % (2.6-8.5); Neutrophils Absolute Auto 8.8 K/mm3 (1.3-6.7); Neutrophils Percent Auto 75.1 % (45.5-73.1); Platelet Count Result 222 k/mm3 (150-375); Red Blood Count 4.08 M/mm3 (4.2-5.4); Red Cell Distribution Width 19.6 % (11.5-14.5); White Blood Count 11.7 K/mm3 (4.5-10.0)
--- NOTE | 2024-05-09 11:38 | WPDANESEPPF ---
Anes - Initial Pre Proc Eval Procedure: Operation Date: 05/09/24 12:00 Proposed Procedures p Repeat Section - Rolo Everett MD Date/Time: 05/09/24 11:38 Surgeon: Rolo Everett MD Pre Op Diagnosis: Repeat C Section Patient Data Age: 34 Gender: F Height: 1.68 m Weight: 79 kg Last Vital Signs Temp 37.6 C 05/09/24 10:22 Pulse 107 H 05/09/24 10:42 BP 104/67 05/09/24 10:42 O2 Del Method Room Air 05/09/24 10:30 Allergies Allergy/AdvReac Type Severity Reaction Status Date / Time Sulfa (Sulfonamide Allergy Mild RASH Verified 05/03/24 09:38 Antibiotics) Home Medications Medication Instructions Recorded Confirmed Type Classic 1 tablet PO DAILY 08/11/22 05/09/24 History ferrous sulfate 325 mg (65 mg 325 mg PO DAILY #30 tabs 08/14/22 05/09/24 Rx iron) tablet Laboratory Tests 05/09/24 10:08 WBC 11.7 H K/mm3 (4.5-10.0) RBC 4.08 L M/mm3 (4.2-5.4) Hgb 10.7 L g/dL (12.0-15.0) Hct 34.2 L % (37.0-47.0) MCV 83.8 fl (80-100) MCH 26.2 pg (26-34) MCHC 31.3 L g/dl (32-36) RDW 19.6 H % (11.5-14.5) Plt Count 222 k/mm3 (150-375) MPV 10.9 H fl (7.4-10.4) Immature Gran % (Auto) 1.1 H % (0-0.5) Neut % (Auto) 75.1 H % (45.5-73.1) Lymph % (Auto) 14.0 L % (18.3-44.2) [place] % (Auto) 5.8 % (2.6-8.5) Eos % (Auto) 3.8 % (0-4.4) Baso % (Auto) 0.2 % (0.2-1.2) Lymph # (Auto) 1.64 K/mm3 (0.9-3.2) [place] # (Auto) 0.7 H K/mm3 (0.1-0.6) Eos # (Auto) 0.4 H K/mm3 (0-0.3) Baso # (Auto) 0.0 K/mm3 (0.0-0.1) Abs Immat Gran (auto) 0.13 H K/mm3 (0.00-0.031) Absolute Neuts (auto) 8.8 H K/mm3 (1.3-6.7) Absolute Nucleated RBC 0.000 K/mm3 (0.0-0.012) Nucleated RBC % 0.0 % (0.0-0.2) RPR Pending HIV 1&2 Ab/P24 Ag 4thGn Pending Patient hx anesthesia problems: none Family hx anesthesia problems: none Results Review: All pre-operative results and documents have been reviewed as part of the pre-operative evaluation. [facility] Surgical History Surgical History History of delivery Family History Family History (Updated 08/11/22 @ 11:08 by Tata Garcia RN) Father Hypertension Social History Social History Smoking status: Never smoker Substance use: never Do You Feel Safe in your Home?: Yes Lack of Transportation: No Lack of Food: Never True Current Housing: I Have Housing Concerned About Future Housing: No Difficulty Paying Gas/Electric Bills: No Difficulty Paying for Meds: No Currently Unemployed: No Education: Bachelor's Degree Difficulty w/ Childcare or Family Care: No Spiritual care concerns: No Anes - Eval Final PreProcedure Day of Procedure 05/09/24 11:38 Patient weight: obese Heart: regular rate and rhythm Lungs: clear to auscultation and normal air movement Airway: Mallampati scale class II Neurological: alert and oriented Last oral intake: >/= 8 hours ASA classification: II Emergent: no Anesthetic plan: proceed Anesthesia type and monitoring: regional spinal and standard monitoring Results Review: All pre-operative results and documents have been reviewed as part of the pre-operative evaluation. Informed Consent: The patient's anesthetic plan and its attendant risks and benefits were discussed with the patient/family/POA. Questions were solicited and answers provided to the satisfaction of the patient/family/POA.
--- NOTE | 2024-05-09 11:56 | PM.IMHP ---
H&P: HPI History of Present Illness Date/Time: 05/09/24 11:56 Chief Complaint: Here for C section. Narrative: 34 y/o at 39 3/7 weeks here for scheduled repeat . EFW 3 weeks ago was 7#, with transverse presentation. GBS neg. Review of Systems Review of Systems: All systems reviewed & are unremarkable except as noted in HPI and below PMFSH Surgical History Surgical History History of delivery Family History Family History Father Hypertension Social History Social History Smoking status: Never smoker Substance use: never Do You Feel Safe in your Home?: Yes Lack of Transportation: No Lack of Food: Never True Current Housing: I Have Housing Concerned About Future Housing: No Difficulty Paying Gas/Electric Bills: No Difficulty Paying for Meds: No Currently Unemployed: No Education: Bachelor's Degree Difficulty w/ Childcare or Family Care: No Spiritual care concerns: No Meds Home Medications and Allergies Home Medications Medication Instructions Recorded Confirmed Type Classic 1 tablet PO DAILY 08/11/22 05/09/24 History ferrous sulfate 325 mg (65 mg 325 mg PO DAILY #30 tabs 08/14/22 05/09/24 Rx iron) tablet Allergies Allergy/AdvReac Type Severity Reaction Status Date / Time Sulfa (Sulfonamide Allergy Mild RASH Verified 05/03/24 09:38 Antibiotics) Vital Signs Vital Signs - 24 hr 05/09/24 10:22 05/09/24 10:30 05/09/24 10:42 Temperature 37.6 C Pulse Rate 107 H Blood Pressure 104/67 Oxygen Delivery Room Air Exam Const: Orientation/consciousness: patient oriented x3 Other: Well-developed, well-nourished female in no acute distress. Neck: Thyroid: thyroid normal Lymphatic: no lymphadenopathy noted (in neck, axilla or inguinal nodes) Resp: Effort & Inspection: normal respiratory effort Auscultation: clear to auscultation bilaterally Cardio: Rate: regular rate Rhythm: regular rhythm Heart sounds: S1 normal heart sound present and S2 normal heart sound present GI: Other: ABD: Soft, nontender, nondistended, gravid. FHR 150 bpm. FH 40 cm, transverse lie. No guarding or rebound tenderness. No hepatosplenomegaly. : General: Yes no CVA tenderness Other: Cervix closed Back/Spine/Pelvis: Back: no CVA tenderness Skin: General skin exam: normal color and no rashes or lesions noted Neuro: General: patient oriented x3 Extrem: Other: Extremities: nontender with no edema Psych: Mental Status: mental status grossly normal Affect: normal affect H&P: Results Labs Labs: Short CBC 05/09/24 Range/Units 10:08 WBC 11.7 H (4.5-10.0) K/mm3 Hgb 10.7 L (12.0-15.0) g/dL Hct 34.2 L (37.0-47.0) % Plt Count 222 (150-375) k/mm3 Assessment and Plan Assessment and plan (1) Term : Code(s): Z34.90 - Encounter for supervision of normal , unspecified, unspecified trimester Status: Acute Assessment and Plan: A: IUP at 39 3/7 weeks with prior cesareans, transverse lie. P: Offered repeat . She understands risks of surgery to include risks of anesthesia, risks of pain, infection, bleeding, blood products, thromboembolic phenomena and damage to adjacent structures such as bowel, bladder, ureters, blood vessels and nerves. She understands all these risks and elects to proceed with surgery. (2) History of delivery: Code(s): Z98.891 - History of uterine scar from previous surgery Status: Acute (3) Transverse lie of fetus: Code(s): O32.2XX0 - Maternal care for transverse and oblique lie, not applicable or unspecified Status: Acute
--- NOTE | 2024-05-09 12:07 | WPDHPUPDATE1 ---
History and Physical Update Update Date/Time: 05/09/24 12:07 History and Physical has been reviewed, including an updated exam of the patient. There are NO changes in the patient's condition. Risks, benefits, and alternatives have been discussed and questions answered. Patient agrees to proceed with procedure.
[2024-05-09 12:10] LABS: HIV 1/2 Ab P24 Ag Result Negative (Negative)
[2024-05-09 12:18] LABS: Rapid Plasma Reagin Non-Reactive (NonReactive)
[2024-05-09] MEDS: FAMOTIDINE 20 MG/2 ML VIAL IV PUSH (13:18)
[2024-05-09] MEDS: ONDANSETRON INJ 4 MG/2 ML VIAL IV PUSH (13:18)
[2024-05-09] MEDS: ceFAZolin 2 GM/D5W 50 ML 2 GM/50 ML BAG IVPB (13:23)
--- NOTE | 2024-05-09 14:21 | W.PM.OBCSD ---
OB - Delivery Note Procedure Delivery date: 05/09/24 Pre-op diagnosis: Previous Delivery and Other (transverse presentation) Post-op Diagnosis: Same Induction method: None Delivery monitor: External FHT and External Uterine Procedure Performed: Repeat Surgeon: Rolo Everett MD Anesthesia type: Spinal Description of Procedure/Findings: Findings: in transverse presentation with head on maternal right. Uterus, tubes and ovaries unremarkable. Techniques: The patient was taken to the operating room where she was prepared and draped in the usual sterile fashion in dorsal supine position with a leftward tilt. She received cefazolin preoperatively. Spinal anesthesia was found to be adequate. A Pfannenstiel skin incision was made along the previous scar line and was carried through to the underlying layer of the fascia. The fascia was incised in the midline and the incision was extended laterally. The fascia was dissected free of the underlying rectus muscles. The rectus muscles were in the midline. The peritoneum was identified, tented up and entered sharply. The peritoneal incision was extended superiorly and inferiorly with good visualization of the bladder. The bladder blade was placed. The vesicouterine peritoneum was identified, tented up and entered sharply. The incision was extended laterally and the bladder flap was developed. The bladder blade was replaced. The uterus was then incised sharply in a transverse fashion along the lower uterine segment. The incision was extended laterally. The 's head was delivered atraumatically to the sterile field, followed by the body. The nose and mouth were bulb suctioned. After a delay, the cord was clamped and cut. The was handed off the field. Cord blood was collected. The placenta was removed manually and was passed off the field. The uterus was exteriorized and cleared of all clots and debris. The uterine incision was reapproximated using 0 Monocryl in a running, locked fashion. A second, imbricating layer of the same suture was run. Excellent hemostasis resulted as did excellent reapproximation of the normal anatomy. The uterus was returned the abdomen. The pelvis was irrigated copiously with warmed normal saline. Surgicel powder was applied to the bladder flap. Rigorous hemostasis was assured. The fascial layer was reapproximated using 0 Vicryl in a running fashion. The skin was closed with a running, subcuticular stitch of 4 0 Vicryl. Dermaflex was applied externally. Sponge, lap, needle and instrument counts were correct. The patient was taken to the recovery room in stable condition. The went to the nursery in stable condition. I was present and scrubbed the entire procedure. Specimen: Yes (cord blood) Estimated Blood Loss: 330 Drains: Yes (dunaway) Packing: No Pathology: Yes (cord blood) Complications: None Condition: Stable Disposition: PACU Baby Date of : 05/09/24 Time of : 13:48 Gestational Age by Date: 39 gender: Male Weight (pounds): 9 Weight (ounces): 1 presentation: transverse Placenta delivery description: Manual Removal and Normal Configuration Cord Vessel Description: 3 Vessels and Delayed Cord Clamping score one minute: 9 score five minutes: 9
--- NOTE | 2024-05-09 14:25 | PM.OBDSVD ---
DS: Admitting Diagnosis Discharge Date 05/12/24 Admitting Diagnosis IUP at 39 3/7 weeks Transverse presentation Prior DS: Discharge Diagnosis Discharge Diagnosis (1) delivery delivered: Code(s): O82 - Encounter for delivery without indication Status: Acute (2) Transverse lie of fetus: Code(s): O32.2XX0 - Maternal care for transverse and oblique lie, not applicable or unspecified Status: Acute OB - DS: Summary OB Procedures : None OB Procedures Intrapartum: Spontaneous Vag Delivery OB Procedures: : None Peripartum Data Procedures: Procedures Operation Date: 05/09/24 12:00 <No data on this case meets the specified criteria> Time Spent with Patient Time attestation: Total time spent providing and/or coordinating discharge services: DS: Data Data Completed and Pending Labs on day of discharge: Labs from last 24 hours 05/09/24 10:08 WBC 11.7 H RBC 4.08 L Hgb 10.7 L Hct 34.2 L MCV 83.8 MCH 26.2 MCHC 31.3 L RDW 19.6 H Plt Count 222 MPV 10.9 H Immature Gran % (Auto) 1.1 H Neut % (Auto) 75.1 H Lymph % (Auto) 14.0 L [place] % (Auto) 5.8 Eos % (Auto) 3.8 Baso % (Auto) 0.2 Lymph # (Auto) 1.64 [place] # (Auto) 0.7 H Eos # (Auto) 0.4 H Baso # (Auto) 0.0 Abs Immat Gran (auto) 0.13 H Absolute Neuts (auto) 8.8 H Absolute Nucleated RBC 0.000 Nucleated RBC % 0.0 RPR Non-reactive HIV 1&2 Ab/P24 Ag 4thGn Negative Blood Type B Positive Antibody Screen Negative Discharge Plan Discharge Attending physician on discharge: Rolo Everett Discharging Clinician: Rolo Everett Patient Disposition: Home, Self-Care Activity: may shower, may drive after 2 weeks and pelvic rest Diet: regular Wound Care Instructions: incision open to air Discharge Instructions: Call or return if temperature above 100.4? F, increased abdominal pain, increased vaginal bleeding or any new problems. Stand Alone Forms: General Discharge Information Follow-up/Referrals: Rolo Everett MD [Physician] - 4 Weeks Discharge Medications: New ibuprofen 600 mg tablet 600 mg PO Q6H PRN (Reason: cramps) Qty: 30 0RF hydrocodone-acetaminophen 5-325 mg tablet 1 - 2 tablet PO Q6H PRN (Reason: pain) Qty: 30 0RF Continued Classic 1 tablet PO DAILY ferrous sulfate 325 mg (65 mg iron) tablet 325 mg PO DAILY Qty: 30 0RF Date of admission: 05/09/24 09:53 Primary Care Provider: Nicholas Evans Admitting Provider: Rolo Everett Attending physician on admission: Rolo Everett Condition: Stable
[2024-05-09] MEDS: LIDOCAINE 5% PATCH 1 PATCH TRANSDERM (14:40)
[2024-05-09] MEDS: ACETAMINOPHEN 325 MG TABLET 650 MG PO ×2 (16:15→21:30)
[2024-05-09] MEDS: KETOROLAC 15 MG/ML VIAL (*BKC) IV PUSH ×2 (16:15→21:30)
--- NOTE | 2024-05-09 16:53 | OBPPTRN ---
Patient transferred to post room #284 via stretcher. Support person present. Oriented to unit, room, information board, rooming in, admission packet and security measures. Patient verbalizes understanding.
[2024-05-10] MEDS: KETOROLAC 15 MG/ML VIAL (*BKC) IV PUSH ×2 (03:50→09:28)
[2024-05-10] MEDS: ACETAMINOPHEN 325 MG TABLET 650 MG PO ×4 (03:50→22:40)
[2024-05-10 04:28] LABS: Basophils Percent Auto 0.3 % (0.2-1.2); Eosinophils Absolute Auto 0.3 K/mm3 (0-0.3); Eosinophils Percent Auto 2.5 % (0-4.4); Hematocrit 29.1 % (37.0-47.0); Hemoglobin 9.2 g/dL (12.0-15.0); Immature Granulocyte Absolute 0.06 K/mm3 (0.00-0.031); Immature Granulocyte Percent A 0.6 % (0-0.5); Lymphocytes Absolute Auto 1.42 K/mm3 (0.9-3.2); Lymphocytes Percent Auto 13.4 % (18.3-44.2); Mean Corpuscular HGB Conc 31.6 g/dl (32-36); Mean Corpuscular Hemoglobin 26.7 pg (26-34); Mean Corpuscular Volume 84.3 fl (80-100); Mean Platelet Volume 10.6 fl (7.4-10.4); Monocytes Absolute Auto 0.6 K/mm3 (0.1-0.6); Neutrophils Absolute Auto 8.2 K/mm3 (1.3-6.7); Neutrophils Percent Auto 77.2 % (45.5-73.1); Platelet Count Result 210 k/mm3 (150-375); Red Blood Count 3.45 M/mm3 (4.2-5.4); Red Cell Distribution Width 19.7 % (11.5-14.5); White Blood Count 10.6 K/mm3 (4.5-10.0)
[2024-05-10] MEDS: DOCUSATE SODIUM 100 MG CAPSULE PO ×2 (08:05→16:59)
[2024-05-10] MEDS: MULTIVIT/MIN/PREN/FOL AC/IRON TABLET 1 TAB PO (08:05)
[2024-05-10] MEDS: SIMETHICONE 80 MG TAB.CHEW PO ×3 (08:06→16:59)
[2024-05-10] MEDS: POLYSACCHARIDE IRON COMPLEX 150 MG CAPSULE PO ×2 (08:06→16:59)
[2024-05-10 08:25] VITALS: BP 102/61; PULSE 88; RESP 18; TEMP 36.8; O2SAT 100
--- NOTE | 2024-05-10 09:00 | P.PNOB_ITS ---
OB - PN: Subj Subjective Date/time seen: 05/10/24 09:00 Narrative: Pain OK. Tolerating diet. Would like circumcision for son. OB - PN: Obj Data Labs 05/10/24 04:14 Labs: Laboratory Results - last 24 hr 05/09/24 05/10/24 10:08 04:14 WBC 11.7 H 10.6 H RBC 4.08 L 3.45 L Hgb 10.7 L 9.2 L Hct 34.2 L 29.1 L MCV 83.8 84.3 MCH 26.2 26.7 MCHC 31.3 L 31.6 L RDW 19.6 H 19.7 H Plt Count 222 210 MPV 10.9 H 10.6 H Immature Gran % (Auto) 1.1 H 0.6 H Neut % (Auto) 75.1 H 77.2 H Lymph % (Auto) 14.0 L 13.4 L [place] % (Auto) 5.8 6.0 Eos % (Auto) 3.8 2.5 Baso % (Auto) 0.2 0.3 Lymph # (Auto) 1.64 1.42 [place] # (Auto) 0.7 H 0.6 Eos # (Auto) 0.4 H 0.3 Baso # (Auto) 0.0 0.0 Abs Immat Gran (auto) 0.13 H 0.06 H Absolute Neuts (auto) 8.8 H 8.2 H Absolute Nucleated RBC 0.000 0.000 Nucleated RBC % 0.0 0.0 RPR Non-reactive HIV 1&2 Ab/P24 Ag 4thGn Negative Blood Type B Positive Antibody Screen Negative OB - PN A/P Plan Comments: A: POD#1, doing well. P: Routine care. Reviewed circ. Exam Narrative: AVSS I/O OK ABD soft, nontender, fundus firm. Incision c/d/i. EXT nontender
[2024-05-10 12:19] VITALS: BP 95/55; PULSE 90; RESP 16; TEMP 37.2; O2SAT 99
--- NOTE | 2024-05-10 13:45 | WPDANLDPN2 ---
Anes-Prog Note L&D Date/Time: 05/10/24 13:45 Comfortable throughout: labor and delivery Neuraxial method: epidural Epidural/Spinal procedure site: clean & non-tender Neuro status: Neuro function grossly intact. Cardiovascular status: normal Respiratory status: normal Airway patency: baseline Mental status: baseline Post-Op hydration status: normal Vital Signs: Last Vital Signs Temp 37.2 C 05/10/24 12:19 Pulse 90 05/10/24 12:19 Resp 16 05/10/24 12:19 BP 95/55 L 05/10/24 12:19 Pulse Ox 99 05/10/24 12:19 O2 Del Method Room Air 05/09/24 18:51 Pain score (VAS): 1 I/O: Intake & Output 05/09/24 05/10/24 05/10/24 23:59 07:59 15:59 Intake Total 300 Output Total 300 900 300 Balance -300 -900 0 Post-procedural complaints: none Patient feedback: Patient satisfied with anesthetic care.
--- NOTE | 2024-05-10 13:46 | WPDANLDNPN2 ---
Anes-Prog Note L&D-Neuraxial Date/Time: 05/10/24 13:46 Neuraxial medications: intrathecal PF morphine Opiod-related complaints: none Patient feedback: Patient satisfied with post-operative pain management.
[2024-05-10] MEDS: IBUPROFEN 600 MG TABLET PO ×2 (15:40→22:40)
--- NOTE | 2024-05-10 16:45 | PC.NURSE ---
Mother verbalizes she is able to independently latch with appropriate positioning and alignment. She denies any nipple discomfort and is responsively . Mother declines any additional assistance or education at this time. Mother is encouraged to call for assistance if her infant doesn?t latch, pain with latching, questions or concerns. Mother voiced understanding of information shared along with the mom/baby guide for an additional resource. Reported to the Primary RN.
[2024-05-10 19:32] VITALS: BP 97/58; PULSE 90; RESP 20; TEMP 36.6; O2SAT 97
[2024-05-11] MEDS: ACETAMINOPHEN 325 MG TABLET 650 MG PO ×3 (05:15→19:33)
[2024-05-11] MEDS: IBUPROFEN 600 MG TABLET PO ×3 (05:15→19:33)
[2024-05-11 07:50] VITALS: BP 95/56; PULSE 92; RESP 16; TEMP 36.6; O2SAT 100
[2024-05-11] MEDS: DOCUSATE SODIUM 100 MG CAPSULE PO ×2 (08:44→16:15)
[2024-05-11] MEDS: SIMETHICONE 80 MG TAB.CHEW PO ×3 (08:44→16:15)
[2024-05-11] MEDS: POLYSACCHARIDE IRON COMPLEX 150 MG CAPSULE PO ×2 (08:44→16:15)
--- NOTE | 2024-05-11 08:44 | PM.OBPNVD ---
OB - PN: Subj Subjective Date/time seen: 05/11/24 08:44 Narrative: Pain OK. Tolerating diet. OB - PN: Obj Data Labs 05/10/24 04:14 OB - PN A/P Plan day: 2 Comments: A: POD#2, doing well. P: Routine care. Exam Narrative: AVSS I/O OK ABD soft, nontender, fundus firm. Incision c/d/i. EXT nontender
[2024-05-11] MEDS: HYDROcodone/acetaminophen (*CRX) 5-325 MG TABLET 1 TAB PO ×3 (08:45→19:33)
[2024-05-11] MEDS: LIDOCAINE 5% PATCH 1 PATCH TRANSDERM (08:45)
[2024-05-11] MEDS: MULTIVIT/MIN/PREN/FOL AC/IRON TABLET 1 TAB PO (08:45)
--- NOTE | 2024-05-11 15:00 | PC.NURSE ---
Consulted with patient to assess needs related to . Discussed with mother her successes, concerns and any questions she has. This is her fourth baby and she feels like he is the most particular about latch and positioning of all her babies. Suggested cradle on the right (the side he latches to best) and football on the left so baby is turned the same way on both sides. We reviewed working with the infant, supporting breast, protecting her nipples with an optimal deep latch, good positioning. Encouraged understanding the benefits of skin to skin, responding to feeding cues, frequencies of feeding 8-12 times in 24 hours (approximately 2-3 hours), duration of feedings, milk production, intake/output feeding sheet and signs of adequate intake encouraging swallowing at the breast. Reviewed positioning and alignment, supporting breast, off-centered (asymmetrical latch) and leading with the chin with big, open, wide gape. Infant latched optimally to the [left] breast in [football and cradle] position. Education given to the mother of how to visualize the suckling (with good rocking jaw motion) swallows (dropping of the lower jaw) and how to listen for drinking at the breast (the ka sound). Baby has frequent heavy swallows and mom has milk already. The infant was [able] to maintain latch without discomfort to mother, doing better in football hold. He can maintain the latch for a short time in cradle but then looses it and begins rooting again. Nipple care reviewed with optimal latch, good positioning and using lanolin as needed. Resources used to facilitate learning were used from the mom and baby guide and name/number written on board. Mother voiced understanding of the education shared, to call for assistance if the does not latch or if there is discomfort with . Reported to the Primary RN.
[2024-05-11 20:00] VITALS: BP 90/58; PULSE 82; RESP 16; TEMP 37.2; O2SAT 99
[2024-05-12] MEDS: ACETAMINOPHEN 325 MG TABLET 650 MG PO ×2 (02:06→07:47)
[2024-05-12] MEDS: IBUPROFEN 600 MG TABLET PO ×2 (02:06→07:47)
[2024-05-12] MEDS: HYDROcodone/acetaminophen (*CRX) 5-325 MG TABLET 1 TAB PO ×2 (02:06→07:47)
[2024-05-12] MEDS: LIDOCAINE 5% PATCH 1 PATCH TRANSDERM (02:09)
[2024-05-12 07:45] VITALS: BP 97/53; PULSE 78; RESP 18; TEMP 36.9; O2SAT 98
[2024-05-12] MEDS: POLYSACCHARIDE IRON COMPLEX 150 MG CAPSULE PO (07:46)
[2024-05-12] MEDS: DOCUSATE SODIUM 100 MG CAPSULE PO (07:46)
[2024-05-12] MEDS: SIMETHICONE 80 MG TAB.CHEW PO (07:47)
--- NOTE | 2024-05-12 10:30 | PC.NURSE ---
Consulted with mother concerning needs and she shared her ability to independently latch infant optimally without pain. Baby is latching better on the left side through the night. Mom's breasts are full and her milk is in. Mother is feeding appropriately for growth of and understands stimulating infant to eat if needed. has had appropriate feedings in the last 24 hours meets the outcomes for weight, output, blood sugar and jaundice at this time. Reinforced understanding of milk production, transition of milk, signs of adequate intake, transition of stool, prevention/relief of engorgement, plugged ducts, mastitis, responsive watching for feeding cues, the different methods of stimulating infant to breastfeed 1-3 hours after the start of the last feeding, community resources, and when to call a provider using the resource of the feeding sheet along with the mom and baby guide. Mother voiced understanding of the information shared, is confident to continue effectively her at home, when to call for assistance, denies any additional assistance or education at this time. Reported to the Primary RN.
[2024-05-12] MEDS: MULTIVIT/MIN/PREN/FOL AC/IRON TABLET 1 TAB PO (11:02)
--- NOTE | 2024-05-12 11:58 | PM.OBPNVD ---
OB - PN: Subj Subjective Date/time seen: 05/12/24 11:58 Narrative: Pain OK. Tolerating diet. Would like to go home. OB - PN: Obj Data Labs 05/10/24 04:14 OB - PN A/P Plan Comments: A: POD#3, doing well. P: Home to f/u 4 weeks. Exam Narrative: AVSS ABD soft, nontender, fundus firm. Incision c/d/i. EXT nontender
[2024-05-13 13:44] VITALS: BP 106/62; PULSE 76; RESP 18; TEMP 36.8; O2SAT 100
== END 2024-05-12 12:48 | disposition home or self-care (01) | DRG 788 ==
LOC: ANHLDR 09:58 → ANHOB2 16:57
PROVIDERS: Admitting Provider Obstetrics & Gynecology; Visit Provider Obstetrics & Gynecology
PROC: 10D00Z1 Extraction of Products of Conception, Low, Open Approach (ICD-10-PCS; CPT 59514; principal; 2024-05-09 12:00)
DX: O34.211 Maternal care for low transverse scar from previous cesarean delivery (principal); Z37.0 Single live birth; Z3A.39 39 weeks gestation of pregnancy; O32.2XX0 Maternal care for transverse and oblique lie, not applicable or unspecified
CPT/HCPCS: 36415; 85025; 86592; 86703; 86850; 86900; 86901; A9270; G0432; J0690; J1885; J2274; J2371; J2405; J2590; J7120